=== PATIENT | female | born 1955 | race Caucasian/White ===

== ENCOUNTER 2023-09-25 09:58 | Day surgery (SDC) | payer OTHER ==
[~2023-09-25] VITALS: Ht 180.3 cm; Wt 132.4 kg
[~2023-09-25 09:58] MED LIST: ceFAZolin SODIUM 2 GM in D5W 50 ML IV ONE
[2023-09-25 11:24] LABS: CALCIUM 9.7 mg/dL (8.4-11.0); CREATININE 0.78 mg/dL (0.55-1.30); POTASSIUM 5.4 mmol/L (3.5-5.1)
[2023-09-25 11:29] LABS: ALBUMIN 3.5 g/dL (3.4-4.8); TOTAL BILIRUBIN 0.8 mg/dL (0.0-1.0); TOTAL PROTEIN, SERUM 7.5 g/dL (6.4-8.3)
[2023-09-25] MEDS ORDERED: KETOROLAC TROMETHAMINE 30 MG VIAL ONE (11:30)
[2023-09-25] MEDS ORDERED: NS 1000 ML IV.SOLN IV ONE (11:30)
[2023-09-25] MEDS ORDERED: ROCURONIUM BROMIDE 10 MG/ML (ZEMURON) ONE (11:30)
[2023-09-25] MEDS ORDERED: ONDANSETRON HCL 4 MG/2 ML VIAL ONE (11:30)
[2023-09-25] MEDS ORDERED: SEVOFLURANE 15 MIN GAS INH ONE (11:30)
[2023-09-25] MEDS ORDERED: MIDAZOLAM HCL 2 MG/2 ML VIAL (VERSED) ONE (11:30)
[2023-09-25] MEDS ORDERED: LIDOCAINE 2%, 20 ML MDV ONE (11:30)
[2023-09-25] MEDS ORDERED: PROPOFOL 200MG/ 20ML VIAL (DIPRIVAN) IV ONE (11:30)
[2023-09-25] MEDS ORDERED: SUGAMMADEX SODIUM 200 MG/2 ML VIAL IV ONE (11:30)
[2023-09-25] MEDS ORDERED: DEXAMETHASONE SOD PHOSPHATE 4 MG/ML VIAL ONE (11:30)
[2023-09-25] MEDS ORDERED: NS IRRIG SOLN 5000 ML IR ONE (11:30)
[2023-09-25] MEDS ORDERED: fentaNYL CITRATE/PF 100 MCG/2 ML AMP ONE (11:30)
[2023-09-25] MEDS ORDERED: ACETAMINOPHEN I.V. 1000 MG 100 ML IV ONE (12:11)
[2023-09-25] MEDS ORDERED: MEPERIDINE HCL/PF 25 MG/ML DISP.SYRIN IVP PRN (12:15)
[2023-09-25] MEDS ORDERED: LABETALOL 100 MG/ 20ML VIAL IVP PRN (12:15)
[2023-09-25] MEDS ORDERED: HYDROmorphone 1 MG/ML INJ. CARTRIDGE IVP PRN (12:15)
[2023-09-25] MEDS ORDERED: hydrALAZINE HCL 20 MG/ML VIAL IVP PRN (12:15)
[2023-09-25] MEDS ORDERED: METOCLOPRAMIDE HCL 10 MG/2 ML VIAL IVP PRN (12:15)
[2023-09-25] MEDS ORDERED: NACL 0.9% 1,000 ML IV SCH (12:15)
[2023-09-25 12:29] VITALS: O2SAT 93
[2023-09-25] MEDS ORDERED: HYDROmorphone 1 MG/ML INJ. CARTRIDGE ONE (13:00)
[2023-09-25] MEDS: HYDROmorphone 1 MG/ML INJ. CARTRIDGE IVP PRN (13:05)
[2023-09-25] MEDS: ONDANSETRON HCL 4 MG/2 ML VIAL ONE (13:05)
[2023-09-25 16:05] VITALS: BP_SYST 119; PULSE 82; RESP 16
== END 2023-09-25 15:35 | disposition home or self-care (01) ==
LOC: SDS 09:58 → SMU 09:59 → SDS 15:35
PROVIDERS: ATTEND Specialist
DX: N95.0 Postmenopausal bleeding (principal); N85.00 Endometrial hyperplasia, unspecified; I10 Essential (primary) hypertension; J45.909 Unspecified asthma, uncomplicated; G47.33 Obstructive sleep apnea (adult) (pediatric); E66.01 Morbid (severe) obesity due to excess calories; M79.7 Fibromyalgia; Z68.41 Body mass index [BMI] 40.0-44.9, adult; Z90.49 Acquired absence of other specified parts of digestive tract; Z91.041 Radiographic dye allergy status; Z79.899 Other long term (current) drug therapy
CPT/HCPCS: 58558; 87081; 80053; 36415; 88305; J3490; J1100; J1885; J3465; J2405; J2704; J3010; J1170; J7060; J7030; C1819; J0131; J2001

== ENCOUNTER 2023-10-11 09:55 | Outpatient (CLI) | payer OTHER ==
[2023-10-11] MEDS ORDERED: iohexoL 350 mgI/mL, 100 ML INFUS..BTL IV ONE (10:17)
== END 2023-10-11 20:03 | disposition home or self-care (01) ==
LOC: SCT 09:55
PROVIDERS: ATTEND Internal Medicine Critical Care Medicine
DX: J98.11 Atelectasis (principal); I27.21 Secondary pulmonary arterial hypertension; N28.1 Cyst of kidney, acquired; Z86.711 Personal history of pulmonary embolism; Z90.49 Acquired absence of other specified parts of digestive tract
CPT/HCPCS: 71275; Q9967